=== PATIENT | male | born 1970 | race Caucasian/White ===

== ENCOUNTER 2016-09-09 21:06 | Emergency (ER) | payer OTHER ==
[2016-09-09 21:18] VITALS: BP 135/100; PULSE 90; RESP 16; TEMP 98.2; O2SAT 94
--- NOTE | 2016-09-09 21:37 | UCPHY ---
H & P Time Seen by Provider: 09/09/16 21:25 Patient Type: Established HPI/ROS: HPI Mouth injury. 38-year-old male by private vehicle. He was doing martial arts. He was struck with a fist that was gloved in the left upper mouth while practicing martial arts. He was not knocked unconscious. He sustained a laceration to the left upper inner lip. No other injury or complaint. ROS: Constitutional: No fever, no chills. No weakness. Musculoskeletal: No back pain. No neck pain. No extremity pain. Skin: As above. Neurological: No headache. No focal weakness or altered sensation. Past medical history: No significant past medical history. Local primary care physician. Social history: Nonsmoker. Here by himself. Physical Exam: General Appearance: Alert, no distress. This patient is responding to questions appropriately and in full sentences. This patient appears well- hydrated and well-nourished. Head: Normocephalic atraumatic. Face: Facial bones are stable on palpation. Eyes: Pupils equal and round and reactive to light, no pallor or injection. No lid erythema or edema. ENT, Mouth: Mucous membranes moist. Dentition is intact. He has a 0.5-1 cm linear non gaping left upper inner lip mucosal laceration which is not through and through. No malocclusion of the jaw. No tongue lacerations or abrasions. Pharynx is clear. The bilateral nasal canals are clear. No septal hematoma. Neurological: Motor sensory function is intact. Cranial nerves are normal. Cerebellar function intact. Skin: Warm and dry, no rashes. As above, abrasions or contusions. Musculoskeletal: Neck is supple and nontender. No midline cervical tenderness on palpation. Extremities are symmetrical, full range of motion. All joints in the bilateral upper and bilateral lower extremities range without pain or impingement. No tenderness on palpation of the long bones in the bilateral upper and bilateral lower extremities. Psychiatric: No agitation. No depression. Database: EKG: Imaging: Procedures: Emergency department course: I do not feel that this wound require suturing based on latest recommendations. This should heal fine without sutures. The patient is comfortable with this plan. Follow-up and return to emergency department precautions discussed with him. All of his questions were answered. He was discharged in good condition. Differential Diagnosis: The differential diagnosis on this patient includes but is not limited to inner lip mucosal laceration. Dentition injury, through and through lip laceration, traumatic brain injury, cervical spine injury, other significant injury unlikely. This represents a partial list of diagnoses considered. These considerations are based on history, physical exam, past history, reassessment and diagnostic testing. Smoking Status: Former smoker Constitutional: Initial Vital Signs Temperature (C) 36.8 C 09/09/16 21:15 Heart Rate 90 09/09/16 21:15 Respiratory Rate 16 09/09/16 21:15 Blood Pressure 135/100 H 09/09/16 21:15 O2 Sat (%) 94 09/09/16 21:15 O2 Delivery Mode Room Air Allergies/Adverse Reactions: Penicillins Adverse Reaction (Unknown, Verified 09/02/09 21:50) Home Medications: Medication Instructions Recorded Valium 09/02/09 Departure - Departure Disposition: Home, Routine, Self-Care Clinical Impression: Inner left upper lip mucosal laceration Condition: Good Instructions: Laceration (ED) Additional Instructions: Read and follow provided instructions. Follow-up with your primary care physician in 2-3 days for re-evaluation. Return to the emergency department for worsening swelling, pain, bleeding or other serious concerns. Referrals: Kathia Kim MD [Medical Doctor] - As per Instructions - PQRS PQRS Measurement: Not applicable.
== END 2016-09-09 22:06 | disposition home or self-care (01) ==
LOC: CED 21:06
DX: S01.511A Laceration without foreign body of lip, initial encounter (principal); Z87.891 Personal history of nicotine dependence; W50.0XXA Accidental hit or strike by another person, initial encounter
CPT/HCPCS: G0463-PO